=== PATIENT | female | born 1990 | race Caucasian/White ===

== ENCOUNTER 2021-10-13 00:25 | Emergency (ER) | payer OTHER ==
[~2021-10-13] VITALS: Ht 167.6 cm; Wt 63.5 kg
[2021-10-13 00:39] VITALS: BP 134/70
--- NOTE | 2021-10-13 00:39 | NUR ---
BIBFREIND C/O GENITAL PAIN FOR THE PAST FEW DAYS PER PT, "POSSIBLE CYST". PT A/OX3. TOLERATING R/A WELL WITH NO SOB. AMB WITH STEADY GAIT.
--- NOTE | 2021-10-13 00:50 | NUR ---
DR. LAW PEREZ AT PT'S BEDSIDE FOR PELVIC EXAM WITH FEMALE RN SENIOR TRAINING SPECIALIST
[2021-10-13] MEDS ORDERED: CLINDAMYCIN HCL 150 MG CAPSULE ONE (00:59)
[2021-10-13] MEDS ORDERED: CLINDAMYCIN HCL 150 MG CAPSULE PO ONE (01:00)
[2021-10-13] MEDS ORDERED: CLIN300C12 PO (01:02)
--- NOTE | 2021-10-13 01:26 | NUR ---
Patient discharged to home in stable condition. Written and verbal after care instructions given. Patient verbalizes understanding of instruction.
== END 2021-10-13 01:29 | disposition home or self-care (01) ==
LOC: ER 00:40
DX: N75.0 Cyst of Bartholin's gland (principal); Z60.2 Problems related to living alone